=== PATIENT | female | born 1980 | race Caucasian/White ===

== ENCOUNTER 2017-12-05 13:51 | Emergency (ER) | payer OTHER ==
[~2017-12-05] VITALS: Ht 160 cm; Wt 79.4 kg
[2017-12-05] MEDS ORDERED: INDERAL XL80 MG PO (14:10)
[2017-12-05] MEDS ORDERED: MELATONIN5 M3 PO (14:10)
[2017-12-05] MEDS ORDERED: TOPAMAX100 MG PO (14:10)
== END 2017-12-05 14:16 | disposition home or self-care (01) ==
LOC: ED 13:51
DX: S99.922A Unspecified injury of left foot, initial encounter (principal); W20.8XXA Other cause of strike by thrown, projected or falling object, initial encounter